=== PATIENT | female | born 1930 | race Caucasian/White ===

== ENCOUNTER 2017-12-08 12:30 | Outpatient (RCR) | payer OTHER ==
[~2017-12-08 12:30] MED LIST: BENAZEPRIL HCL5 MG PO; BENEZEPRIL
== END 2017-12-22 | disposition home or self-care (01) ==
LOC: PTY 12:30
DX: R26.81 Unsteadiness on feet (principal)

== ENCOUNTER 2017-12-27 13:45 | Outpatient (RCR) | payer OTHER | END 2018-01-21 | disposition home or self-care (01) | LOC: PTY 13:45 | DX: R26.81 Unsteadiness on feet (principal) ==

== ENCOUNTER 2018-02-14 11:30 | Outpatient (RCR) | payer OTHER | END 2018-02-21 | disposition home or self-care (01) | LOC: PTY 11:30 | DX: R26.81 Unsteadiness on feet (principal); F03.90 Unspecified dementia, unspecified severity, without behavioral disturbance, psychotic disturbance, mood disturbance, and anxiety ==

== ENCOUNTER 2018-02-28 11:30 | Outpatient (RCR) | payer OTHER | END 2018-03-24 | disposition home or self-care (01) | LOC: PTY 11:30 | DX: R26.81 Unsteadiness on feet (principal); F03.90 Unspecified dementia, unspecified severity, without behavioral disturbance, psychotic disturbance, mood disturbance, and anxiety ==

== ENCOUNTER 2018-04-19 13:11 | Outpatient (RCR) | payer OTHER | END 2018-04-23 | disposition home or self-care (01) | LOC: PTY 13:11 | DX: R26.81 Unsteadiness on feet (principal) ==